=== PATIENT | female | born 1970 | race Caucasian/White ===

== ENCOUNTER 2022-10-05 04:39 | Emergency (ER) | payer OTHER ==
[~2022-10-05] VITALS: Ht 152.4 cm; Wt 63.5 kg
[2022-10-05 04:56] VITALS: BP 181/90
[2022-10-05] MEDS ORDERED: CLIN300 PO (05:13)
== END 2022-10-05 05:21 | disposition home or self-care (01) ==
LOC: ER 04:39
DX: K02.9 Dental caries, unspecified (principal); F17.200 Nicotine dependence, unspecified, uncomplicated
CPT/HCPCS: A9270